=== PATIENT | female | born 1945 | race Caucasian/White ===

== ENCOUNTER → 2017-02-27 | Outpatient (CLI) | payer MEDICARE ==
--- NOTE | 2017-02-27 13:52 | Diagnostic Imaging Report ---
Examination: DEXA scan. Indication: Osteopenia Technique: Bone mineral density estimated based on dual energy radiography over the lumbar spine and femoral necks, was performed. Findings: The lumbar spine T-score is -1.5. This is 8.6% decreased density measurement compared to 06/24/2013. T score over the left femoral neck is -1 and on the right side is -1. This is 0.05% decreased density compared to 2014 exam. IMPRESSION: Osteopenia. Dictated by: Dictated on workstation # [id number]
== END ==
LOC: RAD 09:31
PROVIDERS: ATTEND Internal Medicine
DX: M85.89 Other specified disorders of bone density and structure, multiple sites (principal)
CPT/HCPCS: 77080

== ENCOUNTER 2018-08-05 13:55 | Outpatient (RCR) | payer MEDICARE | END 2019-06-15 | LOC: DSME 13:55 | PROVIDERS: ATTEND Internal Medicine | DX: E11.65 Type 2 diabetes mellitus with hyperglycemia (principal) ==

== ENCOUNTER 2019-02-02 08:15 | Outpatient (RCR) | payer MEDICARE ==
[~2019-02-02] VITALS: Ht 157.5 cm; Wt 93.0 kg
== END 2019-05-03 | disposition home or self-care (01) ==
LOC: DSME 08:15
PROVIDERS: ATTEND Internal Medicine
DX: E11.65 Type 2 diabetes mellitus with hyperglycemia (principal); I10 Essential (primary) hypertension